=== PATIENT | female | born 1995 | race Two or more races ===

== ENCOUNTER 2018-10-08 10:55 | Emergency (ER) | payer BC ==
[2018-10-08 11:40] LABS: #Basophils 0.1 thou/uL (0.0-0.2); #Eosinphils 0.1 thou/uL (0.0-0.7); #Lymphocytes 2.5 thou/uL (1.20-3.40); #Monocytes 0.9 thou/uL (0.11-0.59); #Neutrophils 7.8 thou/uL (1.40-6.50); %Basophils 0.5 % (0.0-1.0); %Lymphocytes 22.1 % (21.0-51.0); %Monocytes 7.9 % (0.0-10.0); %Neutrophils 68.5 % (42.0-75.0); Hemoglobin 14.6 g/dL (12.0-16.0); Mean Corpuscular HGB CONC 33.5 g/dL (32.0-36.0); Mean Corpuscular Hemoglobin 30.9 pg (27.0-31.0); Mean Corpuscular Volume 92.1 fL (78.0-98.0); Mean Platelet Volume 6.5 fL (7.4-10.4); Platelet Count 480 thou/uL (130-400); RBC Distribution Width 10.5 % (11.5-14.5); Red Blood Cell (RBC) Count 4.73 mill/uL (4.20-5.40); White Blood Cell (WBC) Count 11.4 thou/uL (4.8-10.8)
[2018-10-08 11:47] LABS: Bilirubin Negative (Negative); Blood, Urine Trace (Negative); Clarity CLEAR (Clear); Glucose, Urine (Dipstick) Negative (Negative); Leukocyte Negative (Negative); Nitrite Negative (Negative); Protein, Urine (Dipstick) Negative (Neg-Trace); Specific Gravity, Urine 1.012 (1.002-1.036); Urobilinogen 0.2 mg/dL (0.2-1.0); pH, Urine 7.5 (5.0-9.0)
[2018-10-08 11:50] LABS: Bacteria/HPF None Seen HPF (None Seen); Hyaline Casts/LPF 0-3 HYALINE CAST LPF (0-3 Hyaline); Pathc Cast-AUWi Flag 0.14 (0-2.49); RBC/HPF 0-3 HPF (0-3); Squamous Epithelial None Seen HPF (0-3); WBC/HPF 0-3 HPF (0-3)
[2018-10-08 11:56] LABS: Pregnancy Test - Urine (BHCG) Negative (Negative); Pregu Control Background? CLEAR/WHITE (CLR/WHITE); Pregu Control Bar Appear? YES (CONTROL BAR); Specific Gravity 1.012 (1.002-1.036)
[2018-10-08 11:58] LABS: ALT (SGPT) 15 U/L (8-55); AST (SGOT) 15 U/L (5-34); Albumin 4.6 g/dL (3.5-5.0); Alkaline Phosphatase 50 U/L (40-150); Anion Gap 13 mmol/L (10-20); BUN (Urea Nitrogen) 7 mg/dL (7.0-18.7); Bilirubin, Total 0.4 mg/dL (0.2-1.2); Calc. Creatinine Clearance 0 mL/min (70-130); Calcium 10.5 mg/dL (7.8-10.44); Carbon Dioxide 24 mmol/L (22-29); Chloride 105 mmol/L (98-107); Estimated GFR-MDRD Greater than 90; Glucose 65 mg/dL (70-105); Lipase 22 U/L (8-78); Potassium 3.7 mmol/L (3.5-5.1); Protein, Total 8.6 g/dL (6.0-8.3); Sodium 138 mmol/L (136-145)
--- NOTE | 2018-10-08 13:16 | CT ---
CT OF ABDOMEN AND PELVIS PERFORMED WITHOUT CONTRAST ENHANCEMENT: Date: 10/08/18 HISTORY: Patient complaining of sharp right flank pain since [place] (6 days ago). Hematuria. History of kidney stones. COMPARISON: 10/26/14 study. FINDINGS: The lung bases are clear of any infiltrative process. The liver, spleen, pancreas, and gallbladder regions all appear unremarkable. Right and left adrenal glands, and right and left kidneys are normal in size. There are no renal calc carey demonstrated. There is no evidence of obstruction. The ureter is nondilated and I see no evidence of any ureteral calculus. There is no significant periaortic or mesenteric adenopathy. CT of pelvis was performed without contrast enhancement. The appendix is air-filled and normal in kris earance. No periappendiceal inflammatory change. There is no evidence of any adenopathy, mass, or haroon e fluid. I do not see any signs of any ovarian cyst. IMPRESSION: No evidence of renal or ureteral calculi. Normal appendix. POS: [facility]
== END 2018-10-08 13:12 | disposition home or self-care (01) ==
LOC: ERS 10:55
DX: R10.9 Unspecified abdominal pain (principal); F32.9 Major depressive disorder, single episode, unspecified; Z79.899 Other long term (current) drug therapy; Z87.442 Personal history of urinary calculi
CPT/HCPCS: 74176; 80053; 81003; 81015; 81025; 83690; 85025; 87086; 96360

== ENCOUNTER 2018-10-20 10:38 | Outpatient (CLI) | payer BC ==
--- NOTE | 2018-10-20 12:00 | RAD ---
LUMBAR SPINE SERIES TWO VIEWS: History: Previous back injury three years ago. Reports sharp back pain. FINDINGS: Vertebral bodies maintain normal height. Disc spaces appear well preserved. No spondylolisthesis. Ped icles appear intact. IMPRESSION: Unremarkable lumbar spine series. POS: [facility]
--- NOTE | 2018-10-20 12:01 | RAD ---
THORACIC SPINE SERIES: History: Back pain. FINDINGS: Vertebral bodies and disc spaces appear normal in appearance. Slight scoliotic change to the lower th oracic spine, convex to the right. Pedicles appear intact. IMPRESSION: Minimal scoliosis. POS: [facility]
== END 2018-10-20 10:39 | disposition home or self-care (01) ==
LOC: BICRAD 10:38
PROVIDERS: ATTEND Specialist
DX: M46.45 Discitis, unspecified, thoracolumbar region (principal); M51.26 Other intervertebral disc displacement, lumbar region; M41.9 Scoliosis, unspecified
CPT/HCPCS: 72070; 72100

== ENCOUNTER 2022-07-22 13:33 | Outpatient (CLI) | payer SELFPAY ==
[2022-07-22 14:19] LABS: Hemoglobin 12.9 g/dL (12.0-15.5); Mean Corpuscular HGB CONC 35.1 g/dL (32.0-36.0); Mean Corpuscular Hemoglobin 30.4 pg (27.0-33.0); Mean Corpuscular Volume 86.8 fl (81.6-98.3); Mean Platelet Volume 8.3 fl (7.4-10.4); Platelet Count 683 10x3/uL (150-450); RBC Distribution Width 11.4 % (11.5-14.5); Red Blood Cell (RBC) Count 4.24 10x6/uL (3.90-5.03); White Blood Cell (WBC) Count 9.5 10x3/uL (3.5-10.5)
[2022-07-22 14:27] LABS: BHCG - Serum Negative (NEGATIVE); Pregs Control Background? CLEAR/WHITE (CLR/WHITE); Pregs Control Bar Appear? YES (CONTROL BAR)
[2022-07-22 14:32] LABS: PTT 27.9 sec (22.0-33.0); Prothrombin Time 10.6 sec (9.5-12.1)
[2022-07-22 14:34] LABS: Anion Gap 13 mmol/L (10-20); BUN (Urea Nitrogen) 16 mg/dL (7.0-18.7); Calc. Creatinine Clearance 0 mL/min (70-130); Carbon Dioxide 27 mmol/L (22-29); Chloride 102 mmol/L (98-107); Estimated GFR 98; Glucose 87 mg/dL (70-105); Potassium 4.2 mmol/L (3.5-5.1); Sodium 138 mmol/L (136-145)
== END 2022-07-22 13:34 | disposition home or self-care (01) ==
LOC: LABBT 13:33
PROVIDERS: ATTEND Family Medicine
DX: Z01.812 Encounter for preprocedural laboratory examination (principal); N20.1 Calculus of ureter
CPT/HCPCS: 80048; 84703; 85027; 85610; 85730

== ENCOUNTER 2022-11-28 10:11 | Outpatient (CLI) | payer BC | END 2022-11-28 10:12 | disposition home or self-care (01) | LOC: BICRAD 10:11 | PROVIDERS: ATTEND Urology | DX: N20.0 Calculus of kidney (principal); Z98.890 Other specified postprocedural states | CPT/HCPCS: 74018 ==

== ENCOUNTER 2023-03-31 13:49 | Outpatient (CLI) | payer BC | END 2023-03-31 13:50 | disposition home or self-care (01) | LOC: BICULT 13:49 | PROVIDERS: ATTEND Urology | DX: N20.0 Calculus of kidney (principal); R35.0 Frequency of micturition; Z98.890 Other specified postprocedural states | CPT/HCPCS: 76770 ==